=== PATIENT | male | born 2000 | race Asian ===

== ENCOUNTER 2019-07-30 02:19 | Emergency (ER) | payer BC ==
[~2019-07-30] VITALS: Ht 175.3 cm; Wt 70.3 kg
[2019-07-30 02:20] VITALS: BP 106/65
--- NOTE | 2019-07-30 02:55 | NUR ---
DR. LALA AT BEDSIDE EVALUATING PATIENT.
[2019-07-30 02:58] LABS: BASOPHILS % (AUTO) 0.3 % (0.0-2.0); EOSINOPHILS # (AUTO) 0.1 K/uL (0-0.4); EOSINOPHILS % (AUTO) 1.2 % (0.0-4.0); LYMPHOCYTES # (AUTO) 0.6 K/uL (2.0-11.5); LYMPHOCYTES % (AUTO) 9.6 % (20.5-51.1); MEAN CORPUSCULAR HEMOGLOBIN 30 pg (27-31); MEAN CORPUSCULAR HGB CONC 33 g/dL (33-37); MEAN CORPUSCULAR VOLUME 88.1 fL (80-94); MONOCYTES # (AUTO) 0.9 K/uL (0.8-1.0); MONOCYTES % (AUTO) 13.7 % (1.7-9.3); NEUTROPHILS # (AUTO) 4.9 K/uL (1.8-7.7); NEUTROPHILS % (AUTO) 75.2 % (42.2-75.2); PLATELET COUNT (AUTO) 165 K/uL (140-450); RED BLOOD CELL COUNT(AUTO) 5.45 MIL/uL (4.20-6.10); RED CELL DISTRIBUTION WIDTH 13.2 % (11.6-13.7); WHITE BLOOD COUNT (AUTO) 6.5 K/uL (4.5-11.0)
--- NOTE | 2019-07-30 03:00 | NUR ---
BIB SELF REPORTING ABD PAIN, NAUSEA AND DIARRHEA SINCE SUNDAY. REPORTS THE PAIN WAS WORSE TONIGHT AND PREVENTING HIM FROM SLEEPING. ABD SOFT AND MILDLY TENDER IN THE MIDDLE OF HIS LOWER ABD. LUNGS CLEAR. NO OTHER SYMPTOMS REPORTED. HX OF ASTHMA A CHILD. NKA.
[2019-07-30] MEDS: ONDANSETRON 4 MG ODT PO ONE (03:03)
[2019-07-30] MEDS: DICYCLOMINE 20 MG/2 ML VIAL IM ONE (03:03)
[2019-07-30 03:13] LABS: ALBUMIN 3.7 g/dL (3.4-5.0); ANION GAP 13.4 (8-16); CARBON DIOXIDE 27.6 mmol/L (21-32); CREATININE 0.9 mg/dL (0.6-1.3); TOTAL BILIRUBIN 0.5 mg/dL (0.0-1.0)
[2019-07-30 03:26] VITALS: BP 102/67
--- NOTE | 2019-07-30 03:27 | NUR ---
Patient discharged with v/s stable. Written and verbal after care instructions given and explained. Patient alert, oriented and verbalized understanding of instructions. Ambulatory with steady gait. All questions addressed prior to discharge. ID band removed. Patient advised to follow up with PMD. Rx of BENTYL given. Patient educated on indication of medication including possible reaction and side effects. Opportunity to ask questions provided and answered.
== END 2019-07-30 03:26 | disposition home or self-care (01) ==
LOC: MED 02:19
DX: R19.7 Diarrhea, unspecified (principal); R10.9 Unspecified abdominal pain; R11.0 Nausea
CPT/HCPCS: 36415; 80053; 83690; 85025; 96372; 99283; J0500; Q0162